=== PATIENT | female | born 1960 | race Caucasian/White ===

== ENCOUNTER 2021-04-29 | Emergency (ER) | payer OTHER ==
[2021-04-29 00:14] VITALS: BP 146/72; PULSE 65
--- NOTE | 2021-04-29 00:29 | EDM.PDOC ---
ED HPI GENERAL MEDICAL PROBLEM - General Chief Complaint: Upper Extremity Injury/Pain Stated Complaint: LT SHOULDER PAIN Time Seen by Provider: 04/29/21 00:08 - History of Present Illness INITIAL COMMENTS - FREE TEXT/NARRATIVE: 61-year-old female presents after fall while intoxicated with left shoulder pain. Patient reports constant pain that radiates somewhat into the left lateral neck and worsens with range of motion of the left shoulder. She denies strike her head she did not lose consciousness she denies any other pains. No abdominal pain no back pain no neck pain no headache no other extremity pain. ROS: ENT: No sore throat. Neck: No neck stiffness. Respiratory: No shortness of breath. Cardiac: No chest pain. Gastrointestinal: No nausea, vomiting or abdominal pain. Musculoskeletal: Per HPI Neurologic: No headache. Left Shoulder Pain Score (Numeric/FACES): 9 - Related Data Allergies Allergy/AdvReac Type Severity Reaction Status Date / Time No Known Allergies Allergy Verified 10/02/15 12:41 MDT Home Meds: Home Meds Venlafaxine HCl [Venlafaxine ER] 15 mg PO DAILY 04/29/21 [History] Past Medical History - Past Health History Medical/Surgical History: Denies Medical/Surgical History HEENT History: Reports: Impaired Vision Other HEENT History: wears glasses Cardiovascular History: Reports: High Cholesterol, Hypertension Respiratory History: Reports: Other (See Below) Other Respiratory History: she thinks she might have sleep apnea, not diagnosed Gastrointestinal History: Reports: None Genitourinary History: Reports: None [employer] History: Reports: None Musculoskeletal History: Reports: Fracture Other Musculoskeletal History: right wrist Neurological History: Reports: None Psychiatric History: Reports: Anxiety, Depression Endocrine/Metabolic History: Reports: None Hematologic History: Reports: None Immunologic History: Reports: None Oncologic (Cancer) History: Reports: None Dermatologic History: Reports: None - Infectious Disease History Infectious Disease History: Reports: Chicken Pox - Past Surgical History Head Surgeries/Procedures: Reports: None HEENT Surgical History: Reports: None Cardiovascular Surgical History: Reports: None Respiratory Surgical History: Reports: None GI Surgical History: Reports: None Female Surgical History: Reports: None Endocrine Surgical History: Reports: None Neurological Surgical History: Reports: None Musculoskeletal Surgical History: Reports: None Oncologic Surgical History: Reports: None Dermatological Surgical History: Reports: None Social & Family History - Recreational Drug Use Recreational Drug Use: No - Living Situation & Occupation Living situation: Reports: , with Spouse Occupation: Employed Review of Systems - Review of Systems Review Of Systems: See Below ED EXAM, GENERAL - Physical Exam Exam: See Below Free Text/Narrative:: General Appearance: No acute distress, appears comfortable Skin: No rash HEENT: Normocephalic/atraumatic, sclera anicteric, mucous membranes moist Neck: Normal range of motion, no midline tenderness step-off or deformity some mild tenderness in the lateral superior left trap Chest and Lungs: Bilateral breath sounds, clear to auscultation Cardiovascular: Regular rate and rhythm, no murmur Abdomen: Soft, non-tender Back: Normal Musculoskeletal: No edema or tenderness, 2+ left radial pulse no focal tenderness swelling or deformity in the left hand left wrist or left elbow some poorly localized left elbow tenderness passive range of motion is smooth though somewhat limited by pain Neurologic: Awake, alert, no obvious deficits, moving all extremities Psychiatric: Appropriate, cooperative Course - Vital Signs Last Recorded V/S: Last Vital Signs Temp 96.5 F L 04/29/21 00:08 Pulse 65 04/29/21 00:08 Resp 14 04/29/21 00:08 BP 146/72 H 04/29/21 00:08 Pulse Ox 95 04/29/21 00:08 - Orders/Labs/Meds Orders: Active Orders 24 hr Category Date Time Status Ketorolac [Toradol] Med 04/29/21 01:09 Once 30 mg IM ONETIME ONE DME for Discharge [COMM] Stat Oth 04/29/21 01:09 Ordered Departure - Departure Time of Disposition: 01:10 Disposition: Home, Self-Care 01 Condition: Good Clinical Impression: Proximal humerus fracture - Discharge Information *PRESCRIPTION DRUG MONITORING PROGRAM REVIEWED*: Not Applicable *COPY OF PRESCRIPTION DRUG MONITORING REPORT IN PATIENT NARESH: Not Applicable Instructions: Humerus Fracture Treated With Immobilization, How to use a Sling Referrals: PCP,None [Primary Care Provider] - Forms: ED Department Discharge Additional Instructions: Your x-ray shows a proximal humerus fracture of your left arm please wear the sling whenever you are up and around and please follow-up with an orthopedic surgeon either here in town in my not right another nearby city. [facility] Clinic Professional Building [address] [place] [address], [address] [place] [id number] [facility] [address] [place] [address] [address], 1st Floor [phone] The following information is given to patients seen in the emergency department who are being discharged to home. This information is to outline your options fo r follow-up care. We provide all patients seen in our emergency department with a follow-up referral. The need for follow-up, as well as the timing and circumstances, are variable depending upon the specifics of your emergency department visit. If you don't have a primary care physician on staff, we will provide you with a referral. We always advise you to contact your personal physician following an emergency department visit to inform them of the circumstance of the visit and for follow-up with them and/or the need for any referrals to a consulting specialist. The emergency department will also refer you to a specialist when appropriate. This referral assures that you have the opportunity for follow-up care with a specialist. All of these measure are taken in an effort to provide you with optimal care, which includes your follow-up. Under all circumstances we always encourage you to contact your private physician who remains a resource for coordinating your care. When calling for follow-up care, please make the office aware that this follow-up is from your recent emergency room visit. If for any reason you are refused follow-up, please contact the [facility] Emergency Department at and asked to speak to the emergency department charge nurse. Sepsis Event Note (ED) - Evaluation Sepsis Screening Result: No Definite Risk - Focused Exam Vital Signs: Vital Signs Temp Pulse Resp BP Pulse Ox 04/29/21 00:08 96.5 F L 65 14 146/72 H 95 - My Orders Last 24 Hours: My Active Orders 04/29/21 01:09 Ketorolac [Toradol] 30 mg IM ONETIME ONE DME for Discharge [COMM] Stat - Assessment/Plan Last 24 Hours: My Active Orders 04/29/21 01:09 Ketorolac [Toradol] 30 mg IM ONETIME ONE DME for Discharge [COMM] Stat Assessment:: 61-year-old female presenting with likely soft tissue injury to the left shoulder after a fall. The odds of dislocation or fracture are low but x-rays pending. 0110: XR with left-sided proximal humerus fracture given Toradol for pain discharged with sling and follow-up with orthopedic instructions provided.
--- NOTE | 2021-04-29 00:51 | CR ---
INDICATION: Shoulder pain status post fall TECHNIQUE: Shoulder radiograph 3 views left COMPARISON: None FINDINGS: Bone: There is a transverse fracture present in the surgical neck of the proximal left humerus. Joint: The glenohumeral joint is unremarkable. The acromioclavicular joint is unremarkable. Soft tissue: Unremarkable. The visualized hemithorax is unremarkable in appearance. No radiopaque foreign bodies are seen. IMPRESSION: 1. There is a transverse fracture present in the surgical neck of the proximal left humerus. Dictated by Juliocesar Shoemaker MD @ 04/29/2021 12:49:51 AM Dictated by: Juliocesar Shoemaker MD @ 04/29/2021 00:50:18 (Electronically Signed)
[2021-04-29] MEDS ORDERED: Ketorolac 30 MG/ML SDV IM ONE (01:09)
== END 2021-04-29 01:24 | disposition home or self-care (01) ==
LOC: MW.ED
DX: S42.202A Unspecified fracture of upper end of left humerus, initial encounter for closed fracture (principal); I10 Essential (primary) hypertension; W18.39XA Other fall on same level, initial encounter
CPT/HCPCS: 73030; 96372; 99283; J1885